=== PATIENT | male | born 1935 | race Caucasian/White ===

== ENCOUNTER 2018-04-30 12:22 | Emergency (ER) | payer MEDICARE ==
[~2018-04-30] VITALS: Ht 170.1 cm; Wt 68.0 kg
[2018-04-30 12:22] VITALS: BP 130/66
[~2018-04-30 12:22] MED LIST: ATIVAN0.5 MG PO; ATORVASTATIN CA40 M1 PO; HYDROCORTISONE30 GM T; LISINOPRIL20 MG PO; METOPROLOL TART50 M1 PO; NORCO 5-325 TA1 EACH PO; Nizoral 2%15 GM T; PERCOCET 325 MG1 TA5 PO; ULTRAM50 MG PO
[2018-04-30] MEDS ORDERED: PERCOCET 5-3251 EACH PO (14:34)
== END 2018-04-30 14:50 | disposition home or self-care (01) ==
LOC: ED 12:22
DX: S22.31XA Fracture of one rib, right side, initial encounter for closed fracture (principal); M25.551 Pain in right hip; Z79.899 Other long term (current) drug therapy; W01.198A Fall on same level from slipping, tripping and stumbling with subsequent striking against other object, initial encounter; Y93.01 Activity, walking, marching and hiking; Y92.89 Other specified places as the place of occurrence of the external cause; Y99.8 Other external cause status

== ENCOUNTER 2022-01-06 11:06 | Emergency (ER) | payer MEDICARE ==
[~2022-01-06] VITALS: Ht 170.1 cm; Wt 63.5 kg
[~2022-01-06 11:06] MED LIST changes: +PERCOCET 5-3251 EACH PO
[2022-01-06 11:38] VITALS: BP 138/70
[2022-01-06] MEDS ORDERED: ELIQUIS2.5 M1 PO (11:53)
[2022-01-06] MEDS ORDERED: AMLODIPINE BESYL5 MG PO (11:53)
[2022-01-06] MEDS ORDERED: HYDROCODONE-AC1 EAC1 PO (11:54)
[2022-01-06] MEDS ORDERED: COLCHICINE0.6 M1 PO (11:54)
== END 2022-01-06 14:50 | disposition home or self-care (01) ==
LOC: ED 11:06
DX: S92.515A Nondisplaced fracture of proximal phalanx of left lesser toe(s), initial encounter for closed fracture (principal); R60.0 Localized edema; Z79.899 Other long term (current) drug therapy; W06.XXXA Fall from bed, initial encounter; Y93.89 Activity, other specified; Y92.098 Other place in other non-institutional residence as the place of occurrence of the external cause; Y99.8 Other external cause status

== ENCOUNTER 2024-02-03 22:31 | Emergency (ER) | payer MEDICARE ==
[~2024-02-03] VITALS: Ht 170.1 cm; Wt 75.7 kg
[~2024-02-03 22:31] MED LIST changes: +AMLODIPINE BESYL5 MG PO; +COLCHICINE0.6 M1 PO; +ELIQUIS2.5 M1 PO; +HYDROCODONE-AC1 EAC1 PO
[2024-02-03 22:35] VITALS: BP 149/68
[2024-02-04] MEDS ORDERED: LORazepam 0.5 MG TAB PO ONE (01:35)
[2024-02-04] MEDS ORDERED: Tdap Vaccine 0.5 ML SYR (Adult Vaccine) IM ONE (01:35)
== END 2024-02-04 02:18 | disposition home or self-care (01) ==
LOC: ED 22:31
DX: S01.01XA Laceration without foreign body of scalp, initial encounter (principal); F03.90 Unspecified dementia, unspecified severity, without behavioral disturbance, psychotic disturbance, mood disturbance, and anxiety; I10 Essential (primary) hypertension; I25.10 Atherosclerotic heart disease of native coronary artery without angina pectoris; I25.2 Old myocardial infarction; Z95.5 Presence of coronary angioplasty implant and graft; Z98.890 Other specified postprocedural states; W18.09XA Striking against other object with subsequent fall, initial encounter; Y93.01 Activity, walking, marching and hiking; Y92.002 Bathroom of unspecified non-institutional (private) residence as the place of occurrence of the external cause; Y99.8 Other external cause status

== ENCOUNTER 2024-04-10 14:42 | Emergency (ER) | payer MEDICARE ==
[~2024-04-10] VITALS: Wt 68.0 kg
[2024-04-10 14:50] VITALS: BP 98/70
[2024-04-10 15:16] LABS: BASO % 0.6 % (0.0-1.0); EOS # 0.2 10*3/uL (0.0-0.4); EOS % 3.6 % (1.0-4.0); HEMATOCRIT 28.5 % (42.0-52.0); MEAN CELL VOLUME 75.6 fl (80.0-94.0); MEAN CORPUSCULAR HGB CONC 29.1 g/dl (33.0-37.0); MEAN PLATELET VOLUME 8.3 fl (9.6-12.3); MONO # 0.7 10*3/uL (0.1-1.0); MONO % 13.9 % (3.0-9.0); NEUT # 2.7 10*3/uL (2.3-7.9); PLATELET COUNT AUTOMATED 300 10*3/uL (130-400); RED BLOOD COUNT 3.77 10*6/uL (4.50-5.90); RED CELL DISTRI WIDTH 17.3 % (0-14.5); WHITE BLOOD COUNT 4.7 10*3/uL (4.8-10.8)
[2024-04-10 15:36] LABS: BUN 27 mg/dl (9-23); CHLORIDE 108 mmol/L (98-107); POTASSIUM 4.1 mmol/L (3.4-5.1)
[2024-04-10] MEDS ORDERED: VIBRAMYCIN100 MG PO (16:34)
== END 2024-04-10 19:27 | disposition home or self-care (01) ==
LOC: ED 14:42
PROVIDERS: Physician Assistant Medical
DX: L03.115 Cellulitis of right lower limb (principal); G30.9 Alzheimer's disease, unspecified; Z88.0 Allergy status to penicillin; Z91.041 Radiographic dye allergy status; Z79.899 Other long term (current) drug therapy

== ENCOUNTER 2024-08-07 17:09 | Inpatient (IN) | payer MEDICARE ==
[~2024-08-07] VITALS: Ht 170.1 cm; Wt 60.6 kg
[~2024-08-07 17:09] MED LIST changes: +CELEXA10 MG PO; +FUROSEMIDE40 MG PO; +PANTOPRAZOLE SO40 MG PO; +SYNTHROID25 MCG PO; +VIBRAMYCIN100 MG PO; +ZITHROMAX250 MG PO
[2024-08-07 17:19] VITALS: BP 101/36
[2024-08-07] MEDS ORDERED: Acetaminophen/Hydrocodone 5 MG/325 MG TABLET PO ONE ×2 (17:50→20:30)
[2024-08-07 18:19] LABS: BASO % 0.2 % (0.0-1.0); EOS # 0.1 10*3/uL (0.0-0.4); EOS % 0.4 % (1.0-4.0); HEMATOCRIT 27.9 % (42.0-52.0); MEAN CELL VOLUME 84.3 fl (80.0-94.0); MEAN CORPUSCULAR HGB 24.5 pg (27.0-31.0); MEAN PLATELET VOLUME 8.7 fl (9.6-12.3); MONO # 0.7 10*3/uL (0.1-1.0); MONO % 4.2 % (3.0-9.0); NEUT # 15.6 10*3/uL (2.3-7.9); NEUT % 88.8 % (47.0-73.0); PLATELET COUNT AUTOMATED 552 10*3/uL (130-400); RED BLOOD COUNT 3.31 10*6/uL (4.50-5.90); RED CELL DISTRI WIDTH 26.2 % (0-14.5); WHITE BLOOD COUNT 17.5 10*3/uL (4.8-10.8)
[2024-08-07 18:40] LABS: POTASSIUM 4.9 mmol/L (3.4-5.1)
[2024-08-07 18:53] LABS: BILIRUBIN 1+ (Negative); BLOOD Negative (Negative); CLARITY Cloudy (Clear); COLOR Dark Yellow (Yellow); GLUCOSE Negative (Negative); KETONE Trace (Negative); LEUKO ESTERASE Trace (Negative); NITRITE Negative (Negative); SPECIFIC GRAVITY 1.025 (1.001-1.030)
[2024-08-07] MEDS ORDERED: Vancomycin Hydrochloride 250 ML IV ONE (19:05)
[2024-08-07] MEDS ORDERED: SODIUM CHLORIDE 0.9% 1,000 ML IV SCH (19:05)
[2024-08-07 19:17] LABS: BACTERIA 1+; EPITHELIAL CELLS 16-20; HYALINE CAST 0-2; MUCOUS 1+; RBC 0-2 rbc/hpf (0-2)
[2024-08-07 20:30] VITALS: BP 115/45
[2024-08-07] MEDS ORDERED: MORPHINE Sulfate 2 MG/ML SYR IV PRN (20:40)
[2024-08-07] MEDS ORDERED: BISACODYL 5 MG TAB PO PRN (20:40)
[2024-08-07] MEDS ORDERED: ACETAMINOPHEN 325 MG TAB PO PRN (20:40)
[2024-08-07] MEDS ORDERED: Ondansetron Hydrochloride 4 MG/2 ML VIAL IV PRN (20:40)
[2024-08-07] MEDS ORDERED: LORazepam 0.5 MG TAB PO PRN (22:00)
[2024-08-07] MEDS ORDERED: Meropenem 1 GM in SODIUM CHLORIDE 0.9% 100 ML IV SCH (22:25)
[2024-08-07 23:35] VITALS: BP 118/50
[2024-08-08] VITALS: BP 118/50
[2024-08-08] MEDS ORDERED: HYDROCODONE-AC1 EAC1 PO (00:52)
[2024-08-08] MEDS ORDERED: ASPIRIN81 M1 PO (00:54)
[2024-08-08] MEDS ORDERED: PAIN RELIEVER650 MG PO (00:55)
[2024-08-08] MEDS ORDERED: MELATONIN1 MG PO (00:56)
[2024-08-08] MEDS ORDERED: MULTIVITAMIN1 EACH PO (00:57)
[2024-08-08] MEDS ORDERED: NYSTATIN1 EAC3 MC (00:58)
[2024-08-08] MEDS ORDERED: SPS 15 GM/15 GM/60 M PO (00:59)
[2024-08-08] MEDS ORDERED: MELATONIN 1 MG PO PRN (01:05)
[2024-08-08] MEDS ORDERED: Acetaminophen/Hydrocodone 5 MG/325 MG TABLET PO PRN (02:00)
[2024-08-08] MEDS ORDERED: Levothyroxine Sodium 25 MCG TAB PO SCH (06:00)
[2024-08-08] MEDS ORDERED: Pantoprazole Sodium 40 MG TAB PO SCH (06:00)
[2024-08-08 06:28] LABS: POTASSIUM 4.8 mmol/L (3.4-5.1); TOTAL PROTEIN 5.8 gm/dL (6.0-8.0)
[2024-08-08 06:34] LABS: BASO # 0.1 10*3/uL (0.0-0.1); BASO % 0.3 % (0.0-1.0); EOS # 0.2 10*3/uL (0.0-0.4); EOS % 1.5 % (1.0-4.0); HEMATOCRIT 26.8 % (42.0-52.0); MEAN CELL VOLUME 84.3 fl (80.0-94.0); MEAN CORPUSCULAR HGB 24.5 pg (27.0-31.0); MEAN CORPUSCULAR HGB CONC 29.1 g/dl (33.0-37.0); MEAN PLATELET VOLUME 8.9 fl (9.6-12.3); MONO # 0.9 10*3/uL (0.1-1.0); MONO % 5.8 % (3.0-9.0); NEUT # 12.4 10*3/uL (2.3-7.9); NEUT % 84.4 % (47.0-73.0); PLATELET COUNT AUTOMATED 546 10*3/uL (130-400); RED BLOOD COUNT 3.18 10*6/uL (4.50-5.90); WHITE BLOOD COUNT 14.7 10*3/uL (4.8-10.8)
[2024-08-08] MEDS ORDERED: Albuterol Sulf/Ipratropium 3 ML VIAL NEB SCH (06:40)
[2024-08-08 08:00] VITALS: BP 120/50
[2024-08-08] MEDS ORDERED: APIXABAN 2.5 MG TABLET PO SCH ×2 (10:00→22:00)
[2024-08-08] MEDS ORDERED: NYSTATIN 30 GM POWDER T SCH (10:00)
[2024-08-08] MEDS ORDERED: GUAIFENESIN 600 MG TAB ER PO SCH (10:00)
[2024-08-08] MEDS ORDERED: Metoprolol Tartrate 50 MG TAB PO SCH ×2 (10:00)
[2024-08-08] MEDS ORDERED: CITALOPRAM 20 MG TAB PO SCH (10:00)
[2024-08-08] MEDS ORDERED: LISINOPRIL 20 MG TAB PO SCH (10:00)
[2024-08-08] MEDS ORDERED: Technetium Tc 99M MacroAg Albu 1 KIT KIT IV SCH (10:25)
[2024-08-08] MEDS ORDERED: Technetium Tc 99M Pentetate 1 KIT KIT IV SCH (10:25)
[2024-08-08 12:00] VITALS: BP 119/41
[2024-08-08] MEDS ORDERED: Meropenem 50 ML IV SCH (12:00)
[2024-08-08] MEDS ORDERED: HEPARIN SODIUM 5,000 UNIT/ML VIAL SC SCH (12:00)
[2024-08-08 16:00] VITALS: BP 121/46
[2024-08-08] MEDS ORDERED: FOAM BANDAGE 5X5 T ONE (16:45)
[2024-08-08] MEDS ORDERED: HEEL PROTECTOR DEVICE ONE (16:45)
[2024-08-08] MEDS ORDERED: FOAM BANDAGE HEEL T ONE (16:45)
[2024-08-08] MEDS ORDERED: HYDROGEL WOUND DRESSING T ONE (16:45)
[2024-08-08 20:00] VITALS: BP 107/41
[2024-08-08] MEDS ORDERED: ATORVASTATIN CALCIUM 40 MG TABLET PO SCH (22:00)
[2024-08-09] VITALS (12 sets, daily range): BP systolic 125–178; BP diastolic 37–85
[2024-08-09 05:57] LABS: POTASSIUM 4.8 mmol/L (3.4-5.1)
[2024-08-09 06:10] LABS: HEMATOCRIT 22.8 % (42.0-52.0); MEAN CELL VOLUME 82.3 fl (80.0-94.0); MEAN CORPUSCULAR HGB 24.9 pg (27.0-31.0); MEAN CORPUSCULAR HGB CONC 30.3 g/dl (33.0-37.0); MEAN PLATELET VOLUME 8.9 fl (9.6-12.3); PLATELET COUNT AUTOMATED 436 10*3/uL (130-400); RED BLOOD COUNT 2.77 10*6/uL (4.50-5.90); RED CELL DISTRI WIDTH 25.2 % (0-14.5); WHITE BLOOD COUNT 7.5 10*3/uL (4.8-10.8)
[2024-08-09 06:19] LABS: MANUAL DIFF REFLEX YES
[2024-08-09 07:13] LABS: BASOPHILS 1 % (0-1); BURR CELLS MODERATE; PLATELET SUFFICIENCY HIGH (NORMAL); POLYCHROMASIA SLIGHT; SCHISTOCYTES FEW; TOTAL CELLS COUNTED 100 #CELLS
[2024-08-09] MEDS ORDERED: Albuterol Sulf/Ipratropium 3 ML VIAL NEB PRN (07:50)
[2024-08-09] MEDS ORDERED: FOAM BANDAGE HEEL T ONE (10:02)
[2024-08-09] MEDS ORDERED: SODIUM CHLORIDE 0.9% 500 ML IV SCH (10:05)
[2024-08-09] MEDS ORDERED: SUCRALFATE 1 GM TAB PO SCH (16:30)
[2024-08-09] MEDS ORDERED: Pantoprazole Sodium 40 MG VIAL IV SCH (18:00)
[2024-08-09] MEDS ORDERED: Vancomycin Hydrochloride 1,000 MG in SODIUM CHLORIDE 0.9% 250 ML IV SCH (20:00)
[2024-08-09] MEDS ORDERED: FEROSUL325 M1 PO (21:21)
[2024-08-10] VITALS: BP 162/61
[2024-08-10 00:05] VITALS: BP 136/78
[2024-08-10] MEDS ORDERED: FOAM BANDAGE HEEL T ONE (00:55)
[2024-08-10 05:59] LABS: POTASSIUM 4.8 mmol/L (3.4-5.1)
[2024-08-10 06:12] LABS: BASO % 0.6 % (0.0-1.0); EOS # 0.3 10*3/uL (0.0-0.4); MEAN CORPUSCULAR HGB 25.2 pg (27.0-31.0); MONO # 0.6 10*3/uL (0.1-1.0); MONO % 11.9 % (3.0-9.0); NEUT # 3.5 10*3/uL (2.3-7.9); NEUT % 64.9 % (47.0-73.0); PLATELET COUNT AUTOMATED 433 10*3/uL (130-400); RED BLOOD COUNT 3.57 10*6/uL (4.50-5.90); RED CELL DISTRI WIDTH 23.3 % (0-14.5); WHITE BLOOD COUNT 5.4 10*3/uL (4.8-10.8)
[2024-08-10 08:00] VITALS: BP 170/78
[2024-08-10 12:00] VITALS: BP 166/58
[2024-08-10] MEDS ORDERED: AZITHROMYCIN 250 ML IV SCH (14:00)
[2024-08-10] MEDS ORDERED: cefTRIAXone Sodium 1 GM in SYRINGE INFUSION 10 ML IV SCH (15:00)
[2024-08-10 16:00] VITALS: BP 174/97
[2024-08-10 20:00] VITALS: BP 139/50
[2024-08-11] VITALS: BP 157/72
[2024-08-11 05:59] LABS: CHLORIDE 107 mmol/L (98-107); POTASSIUM 5.1 mmol/L (3.4-5.1)
[2024-08-11 06:05] LABS: BUN 26 mg/dl (9-23)
[2024-08-11 06:14] LABS: BASO # 0.1 10*3/uL (0.0-0.1); BASO % 0.8 % (0.0-1.0); EOS # 0.4 10*3/uL (0.0-0.4); EOS % 6.5 % (1.0-4.0); HEMATOCRIT 34.8 % (42.0-52.0); MEAN CELL VOLUME 85.5 fl (80.0-94.0); MEAN CORPUSCULAR HGB 25.3 pg (27.0-31.0); MEAN CORPUSCULAR HGB CONC 29.6 g/dl (33.0-37.0); MEAN PLATELET VOLUME 9.1 fl (9.6-12.3); MONO # 0.8 10*3/uL (0.1-1.0); MONO % 11.3 % (3.0-9.0); NEUT # 4.4 10*3/uL (2.3-7.9); NEUT % 66.5 % (47.0-73.0); PLATELET COUNT AUTOMATED 501 10*3/uL (130-400); RED BLOOD COUNT 4.07 10*6/uL (4.50-5.90); RED CELL DISTRI WIDTH 22.9 % (0-14.5); WHITE BLOOD COUNT 6.6 10*3/uL (4.8-10.8)
[2024-08-11] MEDS ORDERED: hydrOXYzine pamoate 25 MG CAP PO PRN (07:55)
[2024-08-11 08:00] VITALS: BP 149/59
[2024-08-11 12:00] VITALS: BP 125/81
[2024-08-11 16:00] VITALS: BP 110/53
[2024-08-11] MEDS ORDERED: FOAM BANDAGE 5X5 T ONE (18:33)
[2024-08-11 20:00] VITALS: BP 149/65
[2024-08-12] VITALS: BP 146/57
[2024-08-12 06:37] LABS: BUN 21 mg/dl (9-23); CHLORIDE 108 mmol/L (98-107); POTASSIUM 4.8 mmol/L (3.4-5.1)
[2024-08-12 06:45] LABS: BASO % 0.8 % (0.0-1.0); EOS # 0.4 10*3/uL (0.0-0.4); EOS % 8.3 % (1.0-4.0); HEMATOCRIT 29.6 % (42.0-52.0); MEAN CELL VOLUME 84.8 fl (80.0-94.0); MEAN CORPUSCULAR HGB 25.5 pg (27.0-31.0); MEAN CORPUSCULAR HGB CONC 30.1 g/dl (33.0-37.0); MEAN PLATELET VOLUME 9.1 fl (9.6-12.3); MONO # 0.9 10*3/uL (0.1-1.0); MONO % 17.3 % (3.0-9.0); NEUT # 2.5 10*3/uL (2.3-7.9); NEUT % 49.6 % (47.0-73.0); PLATELET COUNT AUTOMATED 380 10*3/uL (130-400); RED BLOOD COUNT 3.49 10*6/uL (4.50-5.90); RED CELL DISTRI WIDTH 23.2 % (0-14.5); WHITE BLOOD COUNT 5.1 10*3/uL (4.8-10.8)
[2024-08-12 08:00] VITALS: BP 155/62
[2024-08-12] MEDS ORDERED: HYDROCODONE-AC1 EAC1 PO (11:54)
[2024-08-12] MEDS ORDERED: ATIVAN0.5 MG PO (11:54)
[2024-08-12] MEDS ORDERED: MUCUS RELIEF E600 MG PO (11:54)
[2024-08-12] MEDS ORDERED: Carafate1 GM PO (11:54)
[2024-08-12] MEDS ORDERED: OMNICEF300 MG PO (11:54)
[2024-08-12] MEDS ORDERED: ELIQUIS2.5 M1 PO (11:54)
[2024-08-12 12:00] VITALS: BP 161/63
== END 2024-08-12 14:10 | DRG 871 ==
LOC: ED 17:09 → 4E 19:57 → EDHOLD 19:57 → 4E 21:35
PROVIDERS: Physician Assistant Medical; Student in an Organized Health Care Education/Training Program; ADMIT Internal Medicine; ATTEND Internal Medicine
PROC: 30233N1 Transfusion of Nonautologous Red Blood Cells into Peripheral Vein, Percutaneous Approach (ICD-10-PCS; principal; 2024-08-09)
DX: A41.9 Sepsis, unspecified organism (principal); J15.69 Pneumonia due to other Gram-negative bacteria; N17.0 Acute kidney failure with tubular necrosis; L03.116 Cellulitis of left lower limb; N30.00 Acute cystitis without hematuria; I50.42 Chronic combined systolic (congestive) and diastolic (congestive) heart failure; L02.416 Cutaneous abscess of left lower limb; F02.B18 Dementia in other diseases classified elsewhere, moderate, with other behavioral disturbance; I13.0 Hypertensive heart and chronic kidney disease with heart failure and stage 1 through stage 4 chronic kidney disease, or unspecified chronic kidney disease; Z66 Do not resuscitate; R65.20 Severe sepsis without septic shock; I25.10 Atherosclerotic heart disease of native coronary artery without angina pectoris; K21.9 Gastro-esophageal reflux disease without esophagitis; N18.30 Chronic kidney disease, stage 3 unspecified; E03.9 Hypothyroidism, unspecified; F32.9 Major depressive disorder, single episode, unspecified; D50.9 Iron deficiency anemia, unspecified; G30.0 Alzheimer's disease with early onset; L89.622 Pressure ulcer of left heel, stage 2; S81.801A Unspecified open wound, right lower leg, initial encounter; Z79.899 Other long term (current) drug therapy; Z79.01 Long term (current) use of anticoagulants; Z79.2 Long term (current) use of antibiotics; Z88.0 Allergy status to penicillin; Z88.8 Allergy status to other drugs, medicaments and biological substances; Z91.09 Other allergy status, other than to drugs and biological substances; Z98.1 Arthrodesis status; Z87.891 Personal history of nicotine dependence; Z83.3 Family history of diabetes mellitus; Z86.718 Personal history of other venous thrombosis and embolism; Z95.1 Presence of aortocoronary bypass graft; X58.XXXA Exposure to other specified factors, initial encounter; Y93.89 Activity, other specified; Y92.89 Other specified places as the place of occurrence of the external cause; Y99.8 Other external cause status